=== PATIENT | male | born 1995 | race Native Hawaiian/Other Pacific Islander ===

== ENCOUNTER 2018-04-25 16:43 | Emergency (ER) | payer BC ==
[~2018-04-25] VITALS: Ht 180.3 cm; Wt 90.7 kg
[2018-04-25 18:35] VITALS: BP 119/67; TEMP 98.2
== END 2018-04-25 18:35 | disposition home or self-care (01) ==
LOC: ED 16:43
DX: S89.92XA Unspecified injury of left lower leg, initial encounter (principal); S79.922A Unspecified injury of left thigh, initial encounter; X50.3XXA Overexertion from repetitive movements, initial encounter
CPT/HCPCS: 99283